=== PATIENT | female | born 1965 | race Caucasian/White ===

== ENCOUNTER 2018-07-17 14:39 | Emergency (ER) | payer BC ==
--- NOTE | 2018-07-17 14:47 | PDOC ---
Attending Attestation - Resident Resident Name: Renetta Bright - ED Attending Attestation I have performed the following: I have examined & evaluated the patient, The case was reviewed & discussed with the resident, I agree w/resident's findings & plan, Exceptions are as noted - HPI HPI: 53 yo F no significant PMH presents with episode of severe dizziness leading to lightheadedness and vomiting just [place]. She states she was at a museum, suddenly felt onset of symptoms. She has had URI symptoms for the past 1 week with congestion, cough, myalgias. Denies fever. - Physicial Exam PE: GENERAL: Awake, alert, and fully oriented, in no acute distress. Intermittent fits of hacking cough. HEAD: No signs of trauma EYES: PERRLA, EOMI, sclera anicteric, conjunctiva clear ENT: Auricles normal inspection, hearing grossly normal, nares with thick discharge B/L, oropharynx clear without exudates. Dry mucosa NECK: Normal ROM, supple, no lymphadenopathy, JVD, or masses LUNGS: Breath sounds equal, clear to auscultation bilaterally. No wheezes, and no crackles HEART: Regular rate and rhythm, normal S1 and S2, no murmurs, rubs or gallops ABDOMEN: Soft, nontender, normoactive bowel sounds. No guarding, no rebound. No masses EXTREMITIES: Normal range of motion, no edema. No clubbing or cyanosis. No cords, erythema, or tenderness NEUROLOGICAL: Cranial nerves II through XII grossly intact. Normal speech. Motor and sensation intact. SKIN: Warm, Dry, normal turgor, no rashes or lesions noted. - Medical Decision Making No signs of acute abdomen. Likely related to dehydration from URI (has been mouth-breathing for a week), vertigo. Improved significantly with IV fluids and albuterol neb.
[2018-07-17 14:51] VITALS: TEMP 98.2; BMI 22.3
[2018-07-17] MEDS ORDERED: ACETAMINOPHEN 1000 MG/100 ML VIAL (NON FORMULARY) IVPB ONE (14:57)
[2018-07-17] MEDS ORDERED: SODIUM CHLORIDE 1,000 ML IV STA ×2 (14:57→15:49)
[2018-07-17] MEDS ORDERED: ONDANSETRON *ODT* 4 MG TABLET SL ONE (14:57)
[2018-07-17] MEDS ORDERED: ACETAMINOPHEN INJECTION 100 ML IVPB ONE (15:00)
[2018-07-17] MEDS ORDERED: ONDANSETRON *ODT* 4 MG TABLET ONE (15:00)
--- NOTE | 2018-07-17 15:13 | PDOC ---
History of Present Illness - General Chief Complaint: Lightheaded Stated Complaint: "I FEEL DEHYDRATED", DIZZY Time Seen by Provider: 07/17/18 14:43 History Source: Patient Exam Limitations: No Limitations - History of Present Illness Initial Comments: 07/17/18 15:12 Pt is a 53yo f with no significant PMH presenting to ED with complaints of dizziness, and presyncope that happened 2 hours prior to presentation. Pt said she was with her mother at a museum when she felt like the room was spinning and felt like she was going to pass out. She was given water to drink but had an episode of nbnb emesis. Pt sat down and then came to the ED. Pt states she only had tea to drink this morning, and stated she felt dehydrated and nauseous. She has also been having cold like symptoms for 1 week associated with arthralgia, myalgia and cough productive of yellow phlegm, sore throat, chest pain. She was told by her PMD to take Zyxal, Tylenol and Flonase. She denies fever, chills, abdominal pain, diarrhea, constipation, numbness/tingling , weakness, sinus pain, ear pain. LMP 1 month ago. PMD: PMH: none PSH: none Meds: none Social: denies Allergies: nkda Past History - Past Medical History Allergies/Adverse Reactions: Allergies Allergy/AdvReac Type Severity Reaction Status Date / Time No Known Allergies Allergy Verified 07/17/18 14:40 Home Medications: Ambulatory Orders Acetaminophen [Tylenol -] 500 mg PO ASDIR 07/17/18 Fluticasone Prop 0.05% Nasal [Flonase -] 1 spray NS DAILY 07/17/18 Levocetirizine Dihydrochloride [Xyzal] 5 mg PO DAILY 07/17/18 COPD: No Other medical history: DENIES - Suicide/Smoking/Psychosocial Hx Smoking History: Never smoked Have you smoked in the past 12 months: No Information on smoking cessation initiated: No Hx Alcohol Use: No Review of Systems - Review of Systems Constitutional: No: Symptoms Reported HEENTM: Yes: Nose Congestion, Throat Pain. No: Eye Pain, Recent change in vision, Double Vision, Ear Pain, Ear Discharge, Tinnitus Respiratory: Yes: Cough, Productive cough. No: Shortness of Breath Cardiac (ROS): Yes: Chest Pain, Lightheadedness. No: Palpitations, Syncope ABD/GI: Yes: Nausea, Vomiting. No: Constipated, Diarrhea, Rectal Bleeding, Abdominal cramping, Tarry Stools : No: Burning, Dysuria, Frequency, Flank Pain Musculoskeletal: Yes: See HPI, Back Pain, Joint Pain, Muscle Pain, Neck Pain Integumentary: No: Symptoms Reported Neurological: No: Headache, Numbness, Tingling, Tremors, Weakness *Physical Exam - Vital Signs Last Vital Signs Temp Pulse Resp BP Pulse Ox 98.2 F 83 18 109/67 97 07/17/18 14:40 07/17/18 14:40 07/17/18 14:40 07/17/18 14:40 07/17/18 14:40 - Physical Exam General Appearance: Yes: Appropriately Dressed, Mild Distress, Thin HEENT: positive: EOMI, EMILIA, Nasal Congestion, TM Erythema (L sided. ). negative: Pale Conjunctivae, Scleral Icterus (R), Scleral Icterus (L), Rhinorrhea Neck: positive: Trachea midline, Supple. negative: Lymphadenopathy (R), Lymphadenopathy (L) Respiratory/Chest: positive: Rhonchi. negative: Lungs Clear, Respiratory Distress, Accessory Muscle Use, Labored Respiration, Rapid RR, Wheezing Cardiovascular: positive: Regular Rhythm, Regular Rate, S1, S2. negative: Edema , JVD, Murmur Vascular Pulses: Carotid (R): 2+, Carotid (L): 2+, Dorsalis-Pedis (R): 2+, Doralis-Pedis (L): 2+ Gastrointestinal/Abdominal: positive: Normal Bowel Sounds, Soft. negative: Distended, Guarding, Rebound, Tenderness Musculoskeletal: negative: CVA Tenderness, Vertebral Tenderness Extremity: positive: Normal Capillary Refill. negative: Pedal Edema, Swelling, Calf Tenderness Integumentary: positive: Normal Color, Dry, Warm Neurologic: positive: freezing room worker II-XII NML intact, Fully Oriented, Alert, Normal Mood/ Affect, Normal Response, Motor Strength 01/25 ED Treatment Course - LABORATORY CBC & Chemistry Diagram: 07/17/18 14:59 07/17/18 14:59 - Medications Given in the ED: ED Medications Discontinued Medications Generic Name Dose Route Start Last Admin Trade Name Freq PRN Reason Stop Dose Admin Acetaminophen 1,000 mg 07/17/18 14:57 07/17/18 15:09 Ofirmev Injection - IVPB 07/17/18 14:58 1,000 mg ONCE ONE Administration Ondansetron HCl 4 mg 07/17/18 14:57 07/17/18 15:05 Zofran Odt - SL 07/17/18 14:58 4 mg ONCE ONE Administration Medical Decision Making - Medical Decision Making 07/17/18 16:33 53yo f with no significant PMH presenting with dizziness, presyncope, cold like symptoms with cough productive of yellow phlegm, arthralgia, myalgia. Vitals: afebrile, 109/67, HR 83, RR18 97% RA PE: rhoncherous lungs. L tympanic membrane. Pt having presyncopal episode with cold like symptoms. Will order ekg, cbc, cmp, ua, cxr if upreg negative. Given Tylenol, NS and DuoNeb. 07/17/18 16:40 Pt reports feeling better after Tylenol, NS and DuoNeb. Labs significant for WBC 13 otherwise wnl. 3+ ketone in urine could explain why pt felt dehydrated and dizzy. Pt is afebrile, tolerating po, can be dc home. Most likely bronchitis. Will hold off on imaging at this time. Pt agreed to plan. given strict return precautions. *DC/Admit/Observation/Transfer Diagnosis at time of Disposition: Upper respiratory infection Qualifiers: URI type: unspecified viral URI Qualified Code(s): J06.9 - Acute upper respiratory infection, unspecified - Discharge Dispostion Disposition: HOME Condition at time of disposition: Improved - Referrals - Patient Instructions Printed Discharge Instructions: DI for Viral Upper Respiratory Infection -- Adult Additional Instructions: You were seen here today because you were feeling dizzy, dehydrated and having a cough and cold symptoms for a week. Your tests were normal. It is most likely bronchitis. I recommend following up with your primary care doctor in the next week. Remember to stay hydrated and drink lots of fluids. You can take Tylenol and/or Motrin for aches. Come back to the emergency room if: you develop fever, cough gets worse, you have difficulty breathing, you feel lightheaded or if any new concerning symptom develops. Thank you - Post Discharge Activity
[2018-07-17 15:15] LABS: BASO % 0.3 % (0-2.0); EOS % 0.3 % (0-4.5); HEMATOCRIT 41.9 % (32.4-45.2); HEMOGLOBIN 14.5 GM/dl (10.7-15.3); LYMPH % 5.9 % (8-40); MCH 32.8 pg (25.7-33.7); MCHC 34.5 g/dl (32.0-36.0); MEAN CELL VOLUME 95.1 fl (80-96); MEAN PLT VOLUME 7.9 fl (7.5-11.1); NEUT % 86.5 % (42.8-82.8); PLATELET COUNT 252 K/MM3 (134-434); RDW 12.3 % (11.6-15.6); WHITE BLOOD COUNT 13.8 K/mm3 (4.0-10.8)
[2018-07-17 15:35] LABS: ALBUMIN 4.1 g/dl (3.5-5.0); ALK PHOS 62 U/L (32-92); ANION GAP 9 MMOL/L (8-16); BILIRUBIN,TOTAL 0.5 mg/dl (0.2-1.0); BLOOD UREA NITROGEN 10 mg/dl (7-18); CALCIUM 9.1 mg/dl (8.4-10.2); CHLORIDE 99 mmol/L (98-107); CO2 23 mmol/L (22-28); CREATININE 0.7 mg/dl (0.6-1.3); GLUCOSE,RANDOM 110 mg/dl (74-106); POTASSIUM 3.9 mmol/L (3.5-5.1); SGOT/AST 27 U/L (10-42); SGPT/ALT 17 U/L (10-40); SODIUM 131 mmol/L (136-145); TOT PROT 7.5 g/dl (6.4-8.3)
[2018-07-17] MEDS ORDERED: ALBUTEROL SO4 0.083% IH SOL 2.5 MG/3 ML VIAL.NEB. NEB ONE (15:49)
[2018-07-17] MEDS ORDERED: ALBUTEROL SO4 2.5/IPRATROPIUM 0.5 INH SOL 3 ML VIAL.NEB. NEB ONE (16:11)
[2018-07-17 16:57] LABS: PH,URINE 5.5 (4.5-8); URINE APPEARANCE Cloudy; URINE BILIRUBIN Negative (NEGATIVE); URINE COLOR Yellow; URINE GLUCOSE (UA) Negative (NEGATIVE); URINE KETONE 3+ (NEGATIVE); URINE LEUK ESTERASE Negative (NEGATIVE); URINE NITRITE Negative (NEGATIVE); URINE PROTEIN 1+ (NEGATIVE); URINE UROBILINOGEN 0.2 (0.2-1.0)
[2018-07-17 17:03] LABS: HCG,QUALITATIVE URINE Negative
[2018-07-17 17:18] VITALS: BP 110/76; PULSE 78
[2018-07-17 17:51] LABS: URINE RBC 0-2 /hpf (0-3)
[2018-07-17 17:52] LABS: EPI CELLS 1+ /HPF; URINE BACTERIA 1+ /hpf (NEGATIVE); URINE WBC 0-2 (0-5)
--- NOTE | 2018-07-18 09:27 | EKG ---
Test Reason : Blood Pressure : / mmHG Vent. Rate : 083 BPM Atrial Rate : 083 BPM P-R Int : 144 ms QRS Dur : 082 ms QT Int : 388 ms P-R-T Axes : 078 052 061 degrees QTc Int : 455 ms NORMAL SINUS RHYTHM NONSPECIFIC T WAVE ABNORMALITY ABNORMAL ECG NO PREVIOUS ECGS AVAILABLE Confirmed by TEAGAN DELACRUZ MD ([id number]) on 07/18/2018 9:27:15 AM Referred By: [place] Confirmed By:TEAGAN DELACRUZ MD
== END 2018-07-17 17:20 | disposition home or self-care (01) ==
LOC: FER 14:39
PROC: 3E033NZ Introduction of Analgesics, Hypnotics, Sedatives into Peripheral Vein, Percutaneous Approach (ICD-10-PCS; principal; 2018-07-17)
PROC: 3E0F7GC Introduction of Other Therapeutic Substance into Respiratory Tract, Via Natural or Artificial Opening (ICD-10-PCS; 2018-07-17)
PROC: 3E0337Z Introduction of Electrolytic and Water Balance Substance into Peripheral Vein, Percutaneous Approach (ICD-10-PCS; 2018-07-17)
DX: J06.9 Acute upper respiratory infection, unspecified (principal)
CPT/HCPCS: 36415; 80053; 81003; 81015; 84484; 84703; 85025; 87804; 93005; 99285-25; J0131; J7030; Q0162